=== PATIENT | male | born 1995 | race Asian ===

== ENCOUNTER 2022-12-10 23:43 | Emergency (ER) | payer OTHER ==
[~2022-12-10] VITALS: Ht 165.1 cm; Wt 79.4 kg
[2022-12-10 23:51] VITALS: O2SAT 98
[2022-12-10] MEDS ORDERED: OXYMETAZOLINE HCL 0.05% NAS 1 SPRAY BTL ONE (23:56)
[2022-12-11] MEDS ORDERED: OXYMETAZOLINE HCL 0.05% NAS 1 SPRAY BTL ONE
== END 2022-12-11 00:10 | disposition home or self-care (01) ==
LOC: FSED 23:46
DX: R04.0 Epistaxis (principal)
CPT/HCPCS: 99283